=== PATIENT | male | born 1990 | race Caucasian/White ===

== ENCOUNTER 2017-12-19 05:40 | Emergency (ER) | payer MEDICAID ==
[~2017-12-19] VITALS: Ht 172.7 cm; Wt 54.0 kg
[2017-12-19 05:44] VITALS: Ht 172.7 cm; Wt 54.0 kg
[2017-12-19 06:50] LABS: BASOPHIL % 0.6 % (0-2); PLATELET COUNT 192 x10^3mcL (130-400); RED CELL DISTRIBUTION WIDTH 11.8 % (11.5-14.5)
[2017-12-19 07:21] LABS: ALKALINE PHOSPHATASE 73 U/L (46-116); ALT/SGPT 16 U/L (16-63); AST/SGOT 13 U/L (15-37); BILIRUBIN TOTAL 1.2 mg/dL (0.20-1.00); CALCIUM 8.6 mg/dL (8.5-10.1); CARBON DIOXIDE 21.4 mmol/L (21-32); CHLORIDE SERUM 102 mmol/L (98-107); GFR1 > 60 mL/min; GLUCOSE SERUM 140 mg/dL (74-106); LIPASE 386 IU/L (73-393); SODIUM SERUM 139 mmol/L (136-145); TOTAL PROTEIN, SERUM 7.2 g/dL (6.4-8.2)
[2017-12-19 07:34] LABS: POTASSIUM SERUM 2.9 mmol/L (3.5-5.1)
[2017-12-19 08:59] VITALS: BP 125/64
== END 2017-12-19 08:59 | disposition home or self-care (01) ==
LOC: ED 05:40
PROVIDERS: Emergency Medicine
DX: N13.2 Hydronephrosis with renal and ureteral calculous obstruction (principal); E87.6 Hypokalemia; Z91.013 Allergy to seafood
CPT/HCPCS: J1885; Q0092

== ENCOUNTER 2018-05-28 06:39 | Emergency (ER) | payer SELFPAY ==
[~2018-05-28] VITALS: Ht 172.7 cm; Wt 56.3 kg
[2018-05-28 06:45] VITALS: Ht 172.7 cm; Wt 56.3 kg
[2018-05-28 07:34] VITALS: BP 113/81
== END 2018-05-28 07:34 | disposition home or self-care (01) ==
LOC: ED 06:39
DX: R10.31 Right lower quadrant pain (principal); F12.90 Cannabis use, unspecified, uncomplicated; Z87.442 Personal history of urinary calculi; Z90.89 Acquired absence of other organs; Z91.013 Allergy to seafood